=== PATIENT | male | born 1955 | race Caucasian/White ===

== ENCOUNTER → 2024-04-28 06:30 | Day surgery (SDC) | payer MEDICARE, OTHER, SELFPAY ==
[2024-04-28 07:16] LABS: Glucose - Point of Care 101 mg/dl (70-99)
== END ==
LOC: GI 06:30
PROVIDERS: ATTENDING PHYSICIAN Internal Medicine Gastroenterology
DX: Z12.11 Encounter for screening for malignant neoplasm of colon (principal); K64.8 Other hemorrhoids; K57.30 Diverticulosis of large intestine without perforation or abscess without bleeding; K56.699 Other intestinal obstruction unspecified as to partial versus complete obstruction; Z86.0100 Personal history of colon polyps, unspecified
CPT/HCPCS: G0105; 82962